=== PATIENT | male | born 1995 | race African-American/Black ===

== ENCOUNTER 2025-02-16 04:41 | Emergency (ER) | payer SELFPAY ==
[~2025-02-16] VITALS: Ht 162.6 cm; Wt 81.8 kg
[2025-02-16 04:57] VITALS: TEMP 99.3
[2025-02-16 05:06] VITALS: BP 148/86; PULSE 108; RESP 18; O2SAT 98
[2025-02-16] MEDS: PERTUSS(ACELL),DIPH,TET/PF 0.5 ML SYRINGE [ADULT] IM. ONE (06:15)
[2025-02-16] MEDS: LIDOCAINE 1% 10 ML VIAL SQ ONE (06:15)
[2025-02-16] MEDS: HYDROGEN PEROXIDE 3% 118 ML SOLUTION TP ONE (06:37)
== END 2025-02-16 07:17 | disposition home or self-care (01) ==
LOC: EMS 05:16
DX: S01.21XA Laceration without foreign body of nose, initial encounter (principal); S09.90XA Unspecified injury of head, initial encounter; Y08.89XA Assault by other specified means, initial encounter; Y93.89 Activity, other specified; Y92.89 Other specified places as the place of occurrence of the external cause; Y99.8 Other external cause status
CPT/HCPCS: 99285; 70450; 70486; 90715; 90471; 12011; J3490